=== PATIENT | female | born 1970 | race Caucasian/White ===

== ENCOUNTER → 2016-11-15 | Outpatient (CLI) | payer BC | END | disposition home or self-care (01) | DX: Z12.31 Encounter for screening mammogram for malignant neoplasm of breast (principal); R92.1 Mammographic calcification found on diagnostic imaging of breast; Z98.82 Breast implant status ==

== ENCOUNTER 2017-04-07 10:02 | Emergency (ER) | payer BC ==
--- NOTE | 2017-04-10 12:08 | ER ---
ADMIT: 04/07/2017 RM/LOC: [facility] MR#: [id number] [address] CARROL CHENEY [address] [place] [address] Emergency Room Report SEX: F AGE: 47 : 1970 DATE: 04/07/2017 Carrol presents to the emergency room with acute right flank pain. Denies any nausea, vomiting, any fever, headache, numbness down the legs. No constipation. No diarrhea. She stated that she was at school today when she suddenly had this pain in her right flank. She decided to go to the bathroom and that is when she almost passed out. The pain was very acute. She decided then to come to the ER and get evaluated. She is very healthy otherwise. PAST MEDICAL HISTORY: She has had breast augmentation and ovarian cyst history. ALLERGIES: SHE IS ALLERGIC TO PENICILLIN. PHYSICAL EXAMINATION: VITAL SIGNS: Blood pressure 132/86 with a heart rate of 74, respirations 16, temp is 99.6, and O2 sats 100%. GENERAL: Moderately anxious. HEENT: Normal inspection. NECK: Supple. RESPIRATIONS: No distress. CARDIOVASCULAR: Regular in rate and rhythm. ABDOMEN: Right flank tenderness. SKIN: Good color although she is lightly pale. EXTREMITIES: Well perfused. PSYCHIATRIC: Mood and affect anxious. Oriented x4. at bedside. LABORATORY DATA: CBC; white count 6.7. Chemistry; BUN is 24, creatinine 0.9. These all normal. Her urine shows rbc's 2 or 3 with blood 2+, no ketones, no white blood cell count. The CT renal colic shows proximal right ureter 7 mm in craniocaudal dimension by 5 mm in the AP dimension with hydronephrosis. ADMIT: 04/07/2017 RM/LOC: [facility] MR#: [id number] [address] CARROL CHENEY [facility] [place] [address] Emergency Room Report SEX: F AGE: 47 : 1970 CLINICAL IMPRESSION: Renal colic, ureterolithiasis with right flank pain. Dr. Frausto contacted. He wants to see patient tomorrow. She must call and make an appointment. By the way, he does not want her drink or eat anything after midnight. Narcotics given to control her pain. At this point, she is pretty comfortable. She was given morphine 2 mg IV plus ketorolac 30 mg in a bag of fluids. She is going to be released home. Note for work and instructions to return to the ER if her condition cannot be controlled with the medication she has been given while she awaits to see Dr. Frausto tomorrow. TONI Barraza / Keny Celestin MD / miryaml JOB #: [id number] CC: Keny Celestin MD, Attending Physician Miguelangel Mcqueen MD, Family Physician
== END 2017-04-07 12:30 | disposition home or self-care (01) ==
LOC: ER 10:02
DX: N13.2 Hydronephrosis with renal and ureteral calculous obstruction (principal); Z98.82 Breast implant status; Z88.0 Allergy status to penicillin